=== PATIENT | female | born 1955 | race American Indian/Alaskan Native ===

== ENCOUNTER 2017-03-07 07:24 | Outpatient (CLI) | payer BC ==
--- NOTE | 2017-03-07 11:08 | Mammography Report ---
Bilateral digital screening mammogram with CAD. Comparison study is dated December 02, 2015. Findings: There is a new small parenchymal nodular asymmetry in the lateral left breast at 3:00. No architectural distortion or suspicious calcifications are seen. The right breast is unremarkable. Impression: Left parenchymal asymmetry. BI-RADS code:. Recommendation: Spot compression images, 90 degree view, and ultrasound if needed.
== END 2017-03-07 07:25 | disposition home or self-care (01) ==
LOC: MAMMO 07:24
PROVIDERS: ATTEND Obstetrics & Gynecology
DX: Z12.31 Encounter for screening mammogram for malignant neoplasm of breast (principal)
CPT/HCPCS: 77067; G0202

== ENCOUNTER 2017-04-10 10:09 | Outpatient (CLI) | payer BC ==
--- NOTE | 2017-04-10 11:33 | Ultrasound Report ---
Spot compression magnification of 4 mm density outer left breast followed by sonographic examination of outer left breast: Persistence of a 4 mm density noted on spot magnification view. No microcalcifications seen. Sonographic examination reveals a cyst measuring 7 mm in diameter at 3:00 position 7 cm from nipple. This does not appear to correspond to the density seen on mammogram. Impression: Probably benign density and benign cyst. 6 month followup with left breast mammogram and if necessary sonogram recommended. BI-RADS CATEGORY: 3 = Probably benign ACR BI-RADS MAMMOGRAPHIC CODES: 0 = Needs additional imaging evaluation; 1 = Negative; 2 = Benign; 3 = Probably benign; 4 = Suspicious; 5 = Malignant; 6 = Known biopsy-proven malignancy COMMENT: 1. Dense breast tissue, i.e., adenosis, fibrocystic changes, etc., may obscure an underlying neoplasm. 2. Approximately 10% of cancers are not detected with mammography. 3. A negative mammography report should not delay biopsy if a clinically suspicious mass is present. COMMENT: Patient follow-up letters are generated in [employer].
== END 2017-04-10 10:10 | disposition home or self-care (01) ==
LOC: MAMMO 10:09
PROVIDERS: ATTEND Obstetrics & Gynecology
DX: N60.02 Solitary cyst of left breast (principal)
CPT/HCPCS: 76641; G0206

== ENCOUNTER 2019-09-11 14:35 | Outpatient (CLI) | payer BC ==
--- NOTE | 2019-09-11 16:25 | Mammography Report ---
DIGITAL SCREENING MAMMOGRAM WITH CAD, 09/11/2019 INDICATION: Routine screening mammography. TECHNIQUE: Digital bilateral 2D mammography was obtained in the craniocaudal and mediolateral obliq ue projections. This examination was interpreted with the benefit of Computer-Aided Detection analysi s. COMPARISON: 08/23/2018 FINDINGS: Breast Density: The breasts are heterogeneously dense, which may obscure small masses. There is no evidence of dominant mass, suspicious calcifications or architectural distortion in eithe r breast. IMPRESSION: No mammographic evidence of malignancy. Follow up recommendation: Routine yearly BI-RADS Category 1: Negative. A "normal" or negative report should not discourage follow up or biopsy of a clinically significant f inding. A written summary of these findings will be mailed to the patient. The patient will be entered into a mammography reporting system which will generate a reminder letter for the patient's next appointmen t at the appropriate interval. The [employer] recommends yearly mammograms starting at age 40 and continuing as l jos as a woman is in good health. Breast MRI is recommended for women with an approximate 20-25% or greater lifetime risk of breast cancer, including women with a strong family history of breast or ova vnagie cancer or who have been treated for Hodgkin's disease. Signer Name: Donald Jiménez MD Signed: 09/11/2019 4:20 PM Workstation Name: [id number]
== END 2019-09-11 14:36 | disposition home or self-care (01) ==
LOC: MAMMO 14:35
PROVIDERS: ATTEND Obstetrics & Gynecology
DX: Z12.31 Encounter for screening mammogram for malignant neoplasm of breast (principal)
CPT/HCPCS: 77067

== ENCOUNTER 2020-10-04 10:15 | Outpatient (CLI) | payer BC ==
--- NOTE | 2020-10-04 13:33 | Mammography Report ---
DEXA BONE DENSITY SCAN INDICATION: BONE DENSITOMETRY. COMPARISON: DEXA 11/20/2014 LUMBAR SPINE (L1-L4): Bone mineral density (BMD) is 1.001 g/cm2. T-score is -0.4 (standard deviations of Young Adult mean). Z-score is 0.7 (standard deviations of Age Matched mean). -2.0% compared with prior examination LEFT FEMORAL NECK: Bone mineral density (BMD) is 0.932 g/cm2. T-score is 0.7 (standard deviations of Young Adult mean). Z-score is 1.2 (standard deviations of Age Matched mean). -5.7% compared with prior examination. A 10 year fracture risk FRAX score is not reported because all T-scores are at or above -1.0 IMPRESSION: 1. WHO Classification: Normal bone density. Fracture Risk: Not Increased. Signer Name: Katelynn Hagan MD Signed: 10/04/2020 1:29 PM Workstation Name: [id number]
--- NOTE | 2020-10-05 09:16 | Mammography Report ---
DIGITAL SCREENING MAMMOGRAM, 10/04/2020 CLINICAL INFORMATION / INDICATION: Routine screening mammography. SCREEMNING MAMMO TECHNIQUE: Digital bilateral 2D mammography was obtained in the craniocaudal and mediolateral obliqu e projections. COMPARISON: Prior mammograms 09/11/2019 and 08/23/2018 FINDINGS: Breast Density: There are scattered areas of fibroglandular density. No dominant mass, suspicious calcifications, or architectural distortion in either breast. There has been no significant change compared with the prior examinations. IMPRESSION: No mammographic evidence of malignancy. Follow up recommendation: Routine yearly BI-RADS Category 1: Negative. A "normal" or negative report should not discourage follow up or biopsy of a clinically significant f inding. A written summary of these findings will be mailed to the patient. The patient will be entered into a mammography reporting system which will generate a reminder letter for the patient's next appointmen t at the appropriate interval. The [employer] recommends yearly mammograms starting at age 40 and continuing as l jos as a woman is in good health. Breast MRI is recommended for women with an approximate 20-25% or greater lifetime risk of breast cancer, including women with a strong family history of breast or ova vangie cancer or who have been treated for Hodgkin's disease. Signer Name: Katelynn Hagan MD Signed: 10/05/2020 9:12 AM Workstation Name: [id number]
== END 2020-10-04 10:16 | disposition home or self-care (01) ==
LOC: MAMMO 10:15
PROVIDERS: ATTEND Obstetrics & Gynecology
DX: Z12.31 Encounter for screening mammogram for malignant neoplasm of breast (principal); Z13.820 Encounter for screening for osteoporosis; N95.0 Postmenopausal bleeding
CPT/HCPCS: 77067; 77080

== ENCOUNTER 2021-10-24 11:07 | Outpatient (CLI) | payer BC ==
--- NOTE | 2021-10-24 16:06 | Mammography Report ---
DIGITAL SCREENING MAMMOGRAM WITH CAD, 10/24/2021 CLINICAL INFORMATION / INDICATION: Routine screening TECHNIQUE: Digital bilateral 2D mammography was obtained in the craniocaudal and mediolateral obliqu e projections. This examination was interpreted with the benefit of Computer-Aided Detection analysis . COMPARISON: 10/04/2020 and prior FINDINGS: Breast Density: There are scattered areas of fibroglandular density. No dominant mass, suspicious calcifications, or architectural distortion in either breast. IMPRESSION: No mammographic evidence of malignancy. Follow up recommendation: Routine yearly BI-RADS Category 1: NEGATIVE A "normal" or negative report should not discourage follow up or biopsy of a clinically significant f inding. A written summary of these findings will be mailed to the patient. The patient will be entered into a mammography reporting system which will generate a reminder letter for the patient's next appointmen t at the appropriate interval. The [employer] recommends yearly mammograms starting at age 40 and continuing as l jos as a woman is in good health. Breast MRI is recommended for women with an approximate 20-25% or greater lifetime risk of breast cancer, including women with a strong family history of breast or ova vangie cancer or who have been treated for Hodgkin's disease. Signer Name: Eduardo Myers MD Signed: 10/24/2021 4:02 PM Workstation Name: [email or web address]
== END 2021-10-24 11:08 | disposition home or self-care (01) ==
LOC: MAMMO 11:07
PROVIDERS: ATTEND Obstetrics & Gynecology
DX: Z12.31 Encounter for screening mammogram for malignant neoplasm of breast (principal)
CPT/HCPCS: 77067